=== PATIENT | female | born 1960 | race Caucasian/White ===

== ENCOUNTER 2018-12-05 10:04 | Emergency (ER) | payer MEDICARE, OTHER ==
[2018-12-05 10:14] VITALS: RESP 18; TEMP 97.6
[2018-12-05] MEDS ORDERED: LORazepam 2 MG/ML INJ IM STA (10:40)
--- NOTE | 2018-12-05 10:46 | ED ---
General Adult HPI - General Chief complaint: Fall Stated complaint: Fall, arm pain Time Seen by Provider: 12/05/18 10:06 Source: family, EMS, RN notes reviewed Mode of arrival: EMS Limitations: altered mental status, physical limitation - History of Present Illness Initial comments: Patient is a pleasant 68-year-old female presenting to the emergency department with complaints of reported fall. Patient is mentally handicapped. Caretakers/family provide history. Patient did have a fall a week ago and fractured her left elbow. Patient was [facility] office today and fell again on her left arm. Patient seemed to have pain from this. Head injury was not witnessed however patient was holding her head at one point. There was no loss of consciousness. No change of behavior. No vomiting. Patient was able to stand following the fall. They have noticed no head injury. Patient is nonverbal and provides no significant history. They have not noticed any new area of concern regarding injury. They state last time patient needed sedation including 2 mg of Ativan and 25 mg of fentanyl to be sedated for x-rays. They do add that patient took one [place] at 9 AM. - Related Data Home Medications Medication Instructions Recorded Confirmed Aspirin [[place] Aspirin EC] 81 mg PO DAILY 12/05/18 12/05/18 Atorvastatin [Lipitor] 40 mg PO HS 12/05/18 12/05/18 Calcium/Magnesium 1000mg/500mg 2 tab PO DAILY 12/05/18 12/05/18 Hydrocodone/Acetaminophen [[place] 1 tab PO Q6HR PRN 12/05/18 12/05/18 7.5-325] INSULIN LISPRO (humaLOG) [humaLOG] 15 units SQ DAILY 12/05/18 12/05/18 Insulin Detemir (Levemir) [Levemir] 11.5 unit SQ DAILY 12/05/18 12/05/18 Levothyroxine Sodium [Synthroid] 125 mcg PO DAILY 12/05/18 12/05/18 Lisinopril [Prinivil] 5 mg PO DAILY 12/05/18 12/05/18 Metoprolol Succinate (ER) [Toprol 25 mg PO DAILY 12/05/18 12/05/18 Xl] Allergies Allergy/AdvReac Type Severity Reaction Status Date / Time morphine AdvReac Confusion Verified 12/05/18 10:27 Review of Systems ROS Statement: Those systems with pertinent positive or pertinent negative responses have been documented in the HPI. ROS Other: All systems not noted in ROS Statement are negative. Limitations: ROS unobtainable due to patients medical condition Constitutional: Denies: fever Respiratory: Denies: dyspnea Gastrointestinal: Denies: vomiting Musculoskeletal: Denies: back pain Skin: Denies: rash Neurological: Denies: weakness, confusion Psychiatric: Reports: anxiety Past Medical History Past Medical History: Diabetes Mellitus, Myocardial Infarction ([place]) Additional Past Medical History / Comment(s): type 1, cognitive delayed History of Any Multi-Drug Resistant Organisms: None Reported Past Surgical History: Heart Catheterization With Stent Past Psychological History: No Psychological Hx Reported Smoking Status: Never smoker Past Alcohol Use History: None Reported Past Drug Use History: None Reported General Exam Limitations: altered mental status, physical limitation General appearance: alert, in no apparent distress Head exam: Present: atraumatic, normocephalic Eye exam: Present: normal appearance, PERRL, EOMI ENT exam: Present: normal exam Neck exam: Absent: tenderness Respiratory exam: Present: normal lung sounds bilaterally. Absent: chest wall tenderness Cardiovascular Exam: Present: regular rate, normal rhythm Expanded Peripheral pulses: 2+: Radial (L) GI/Abdominal exam: Present: soft. Absent: distended, tenderness Extremities exam: Present: tenderness (Left forearm through left proximal humerus), other (There is minimal swelling of the left hand. Distally the extremity is neurovascularly intact. Cap refill less than 2 seconds.) Back exam: Absent: tenderness Neurological exam: Absent: motor sensory deficit Psychiatric exam: Present: normal affect, normal mood Skin exam: Present: normal color Course Vital Signs 12/05/18 10:08 Temperature 97.6 F Pulse Rate 70 Respiratory 18 Rate Blood Pressure 130/64 O2 Sat by Pulse 98 Oximetry Medical Decision Making - Medical Decision Making Family updated. - Radiology Data Radiology results: image reviewed (X-ray of the left humerus and left forearm does show lateral clavicle fracture and distal humerus fracture.) Disposition Clinical Impression: Clavicle fracture, Humerus fracture Disposition: HOME SELF-CARE Condition: Stable Instructions (If sedation given, give patient instructions): Clavicle Fracture (ED), Arm Fracture in Adults (ED) Additional Instructions: Please follow-up with repeat in the next day or 2 for recheck. Please continue to use sling. Ice to affected area. Return for worsening symptoms or other concerns. Is patient prescribed a controlled substance at d/c from ED?: No Referrals: Davin Dai MD [Primary Care Provider] - 1-2 days Time of Disposition: 13:39
--- NOTE | 2018-12-05 12:56 | XR ---
EXAMINATION TYPE: XR forearm LT, XR humerus LT DATE OF EXAM: 12/05/2018 CLINICAL HISTORY: Fall injury with pain. TECHNIQUE: Two views of the left humerus and forearm are obtained. COMPARISON: None. FINDINGS: There is no acute fracture in the left humerus. Visualized left shoulder joint shows acute comminuted slightly displaced fracture through distal clavicle. Demineralization is present. [place] lavicular joint is preserved. Some high positioning of the humeral head is identified. Clothing or bl anket material overlies the soft tissue. There is persistent linear lucency in the distal humeral met adiaphysis felt to reflect acute oblique fracture. There is no additional acute fracture or dislocation seen in the left radius or ulna. The left wrist joint appears within normal limits . Proximal dorsal soft tissue phleboliths are noted. Mild subcuta neous edema near elbow joint is present. There is suggestion of abnormal fat pad sign with visualizat ion of posterior fat pad. IMPRESSION: There is acute comminuted minimally displaced fracture distal clavicle. There is acute o blique minimally displaced fracture distal humeral metadiaphysis with likely elbow intra-articular ex tension as well abnormal fat pad signs are present. (Initial encounter closed type post traumatic fracture)
[2018-12-05 13:52] VITALS: BP 108/77; PULSE 68
== END 2018-12-05 13:55 | disposition home or self-care (01) ==
LOC: EC 10:04
DX: S42.032A Displaced fracture of lateral end of left clavicle, initial encounter for closed fracture (principal); S42.492A Other displaced fracture of lower end of left humerus, initial encounter for closed fracture; E11.9 Type 2 diabetes mellitus without complications; I25.2 Old myocardial infarction; Z79.4 Long term (current) use of insulin; Z79.890 Hormone replacement therapy; Z79.82 Long term (current) use of aspirin; Z79.899 Other long term (current) drug therapy; Z88.5 Allergy status to narcotic agent; W19.XXXA Unspecified fall, initial encounter; Y92.59 Other trade areas as the place of occurrence of the external cause
CPT/HCPCS: 96372; 99283